=== PATIENT | male | born 1990 | race African-American/Black ===

== ENCOUNTER 2016-08-08 20:07 | Emergency (ER) | payer MEDICAID ==
--- NOTE | 2016-08-08 20:40 | ER Document Report ---
ED Medical Screen (RME) - General Stated Complaint: IVC Notes: patient is a 26 year old male with PMH s/f schizophrenia patient admits to paranoid feeling that others want to harm him visual hallucinations, auditory hallucinations patient and family feel that his medications are not working effectively become disruptive at home and aggressive with his family I have greeted and performed a rapid initial assessment of this patient. A comprehensive ED assessment and evaluation of the patient, analysis of test results and completion of the medical decision making process will be conducted by additional ED providers.
[2016-08-08 21:21] LABS: ABSOLUTE EOSINOPHILS # (AUTO) 0.3 10^3/uL (0.0-0.6); ABSOLUTE LYMPHOCYTES (AUTO) 1.7 10^3/uL (0.5-4.7); ABSOLUTE MONOCYTES (AUTO) 0.5 10^3/uL (0.1-1.4); ABSOLUTE NEUT (AUTO) 2.3 10^3/uL (1.7-8.2); APPEARANCE,URINE SLIGHTLY-CLOUDY; BASOPHILS % (AUTO) 0.5 % (0-2); BILIRUBIN,URINE NEGATIVE (NEGATIVE); CALCIUM OXALATE CRYSTALS,URINE FEW /HPF; EOSINOPHILS % (AUTO) 6.5 % (0-6); GLUCOSE, URINE NEGATIVE (NEGATIVE); HEMATOCRIT 44.2 % (37.9-51.0); HGB HCT DIFFERENCE 0.8; KETONES,URINE NEGATIVE (NEGATIVE); LEUKOCYTE ESTERASE,URINE SMALL (NEGATIVE); LYMPHOCYTES % (AUTO) 35.4 % (13-45); MEAN CORPUSCULAR HEMOGLOBIN 30.6 pg (27.0-33.4); MEAN CORPUSCULAR HGB CONC 33.9 g/dL (32.0-36.0); MEAN CORPUSCULAR VOLUME 90 fl (80-97); MONOCYTES % (AUTO) 10.6 % (3-13); NITRITE,URINE NEGATIVE (NEGATIVE); PROTEIN,URINE NEGATIVE (NEGATIVE); RED CELL DISTRIBUTION WIDTH 13.4 % (11.5-14.0); URINE SPECIFIC GRAVITY 1.029; WHITE BLOOD COUNT 4.8 10^3/uL (4.0-10.5)
[2016-08-08 21:29] LABS: ALANINE AMINOTRANSFERASE 60 U/L (21-72); ALCOHOL < 10 mg/dL (NONE DETECTED); ALKALINE PHOSPHATASE 75 U/L (38-126); ANION GAP 8 (5-19); ASPARTATE AMINO TRANSFERASE 47 U/L (17-59); BILIRUBIN,TOTAL 0.4 mg/dL (0.2-1.3); BLOOD UREA NITROGEN 11 mg/dL (7-20); CALCIUM 9.7 mg/dL (8.4-10.2); CARBON DIOXIDE 30 mmol/L (22-30); CHLORIDE 104 mmol/L (98-107); CREATININE RESULT 1.01 mg/dL (0.52-1.25); GLUCOSE 110 mg/dL (75-110); POTASSIUM 3.8 mmol/L (3.6-5.0); SODIUM 142.2 mmol/L (137-145); TOTAL PROTEIN 7.3 g/dL (6.3-8.2)
[2016-08-08 21:32] LABS: URINE BARBITURATES SCREEN NEGATIVE; URINE METHADONE SCREEN NEGATIVE; URINE OPIATES LOW NEGATIVE; URINE PHENCYCLIDINE SCREEN NEGATIVE
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
--- NOTE | 2016-08-09 12:43 | EKG REPORT ---
SEVERITY:- NORMAL ECG - SINUS RHYTHM : Confirmed by: Clyde Sung 09-Aug-2016 12:41:39
[2016-08-09 13:27] VITALS: BP 142/81
--- NOTE | 2016-08-09 16:13 | PSYCHOLOGICAL NOTE ---
Psych Note - Psych Note Psych Note: Patient presented to [facility] ED with a history of schizophrenia; patient admits to paranoid feeling that others want to harm him. Patient disclosed that he is here for his medication. He continued disclosed that he told his mom he needed to his medicine but she would not do it. He continues state that he is now hearing voices because it's time for his medication. Patient states that he was at [facility] in the beginning of the month. Clinician received confirmation from [facility] that the patient received Invega shot that will last 1 month and he is not due for until approximately August 21. Patient is alert and orientated to person place time and circumstance. Mood is euthymic with congruent affect. Patient denies suicidal homicidal ideation. Patient denies current auditory visual hallucinations; no delusions are noted. Thought process is is congruent with patient's possible IDD and is organized and linear. Conversational speech was within normal rate tone and prosody. Eye contact was well maintained. Intellectual abilities appear to be low average range. Attention and concentration are good. Insight, judgment, impulse control are good. 298.9 (F29) Unspecified Schizophrenia Spectrum and Other Psychotic Disorder per history provided by patient. Impression\plan: Patient is recommended for rescind of IVC is considered psychiatrically cleared for discharge. Patient denies suicidal homicidal ideation. Patient states he just needed his medication because he thought it was time for it clinician explained to the patient that he needs to go to his outpatient provider for his mental health approximately the first of the month to receive his medication. Patient stated he did not know that. Patient is not demonstrating any behavior of responding to internal stimuli. Patient does not meet criteria for IVC per [place] GS 122C. Patient is psychiatrically cleared for discharge. Dr. Breaux was consulted on the care and management of this patient; attending physician is in agreement with recommendations and disposition.
== END 2016-08-09 13:17 | disposition home or self-care (01) ==
LOC: ER 20:07
DX: F20.9 Schizophrenia, unspecified (principal); R45.6 Violent behavior; F17.200 Nicotine dependence, unspecified, uncomplicated
CPT/HCPCS: 36415; 80053; 80307; 81001; 85025; 93005; 93010; 99285

== ENCOUNTER 2016-12-06 20:31 | Emergency (ER) | payer MEDICAID, OTHER ==
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
[2016-12-06 23:24] LABS: ABSOLUTE EOSINOPHILS # (AUTO) 0.2 10^3/uL (0.0-0.6); ABSOLUTE LYMPHOCYTES (AUTO) 1.6 10^3/uL (0.5-4.7); ABSOLUTE MONOCYTES (AUTO) 0.5 10^3/uL (0.1-1.4); ABSOLUTE NEUT (AUTO) 2.1 10^3/uL (1.7-8.2); BASOPHILS % (AUTO) 0.7 % (0-2); EOSINOPHILS % (AUTO) 4.5 % (0-6); HEMOGLOBIN 14.2 g/dL (13.5-17.0); HGB HCT DIFFERENCE 0.6; LYMPHOCYTES % (AUTO) 36.1 % (13-45); MEAN CORPUSCULAR HEMOGLOBIN 30.2 pg (27.0-33.4); MEAN CORPUSCULAR HGB CONC 33.8 g/dL (32.0-36.0); MEAN CORPUSCULAR VOLUME 90 fl (80-97); MONOCYTES % (AUTO) 10.7 % (3-13); RED BLOOD COUNT 4.69 10^6/uL (4.35-5.55); RED CELL DISTRIBUTION WIDTH 12.8 % (11.5-14.0); WHITE BLOOD COUNT 4.3 10^3/uL (4.0-10.5)
[2016-12-06 23:37] LABS: ALANINE AMINOTRANSFERASE 27 U/L (21-72); ALBUMIN 3.7 g/dL (3.5-5.0); ALKALINE PHOSPHATASE 76 U/L (38-126); ANION GAP 10 (5-19); ASPARTATE AMINO TRANSFERASE 15 U/L (17-59); BILIRUBIN,DIRECT 0.3 mg/dL (0.0-0.4); BILIRUBIN,TOTAL 0.3 mg/dL (0.2-1.3); BLOOD UREA NITROGEN 18 mg/dL (7-20); CARBON DIOXIDE 26 mmol/L (22-30); CHLORIDE 106 mmol/L (98-107); CREATININE RESULT 1.01 mg/dL (0.52-1.25); GLUCOSE 103 mg/dL (75-110); POTASSIUM 4.5 mmol/L (3.6-5.0); SODIUM 142.3 mmol/L (137-145)
[2016-12-06 23:38] LABS: ALCOHOL < 10 mg/dL (NONE DETECTED)
--- NOTE | 2016-12-06 23:45 | EKG REPORT ---
SEVERITY:- NORMAL ECG - SINUS RHYTHM ST ELEV, PROBABLE NORMAL EARLY REPOL PATTERN : Confirmed by: Clyde Sung 06-Dec-2016 23:44:02
[2016-12-07 06:25] LABS: APPEARANCE,URINE CLOUDY; BILIRUBIN,URINE NEGATIVE (NEGATIVE); GLUCOSE, URINE NEGATIVE (NEGATIVE); KETONES,URINE NEGATIVE (NEGATIVE); LEUKOCYTE ESTERASE,URINE SMALL (NEGATIVE); NITRITE,URINE NEGATIVE (NEGATIVE); PROTEIN,URINE 30 mg/dL (NEGATIVE); URINE SPECIFIC GRAVITY 1.026; UROBILINOGEN,URINE NEGATIVE mg/dL (<2.0)
[2016-12-07 06:37] LABS: URINE BARBITURATES SCREEN NEGATIVE; URINE METHADONE SCREEN NEGATIVE; URINE OPIATES LOW NEGATIVE; URINE PHENCYCLIDINE SCREEN NEGATIVE
--- NOTE | 2016-12-07 10:44 | ER Document Report ---
Doctor's Note Notes: 12/07/16 10:43 Patient resting comfortably, no concerns overnight, patient has no complaints and reports feeling much better, chart was reviewed including labs and vital signs which remained stable, patient likely to be discharged today as his concerns seem to be behavioral in nature and do not require inpatient psychiatric treatment
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
[2016-12-07 11:34] VITALS: BP 111/55
== END 2016-12-07 11:40 | disposition home or self-care (01) ==
LOC: ER 20:31
DX: F91.9 Conduct disorder, unspecified (principal); F12.20 Cannabis dependence, uncomplicated; R45.850 Homicidal ideations; F29 Unspecified psychosis not due to a substance or known physiological condition; F32.9 Major depressive disorder, single episode, unspecified
CPT/HCPCS: 36415; 80053; 80307; 81001; 85025; 93005; 93010; 99284

== ENCOUNTER 2018-01-30 22:06 | Emergency (ER) | payer MEDICAID, OTHER ==
--- NOTE | 2018-01-30 23:53 | ER Document Report ---
ED General - General Chief Complaint: Medication Refill Stated Complaint: MED REFILL Time Seen by Provider: 01/30/18 23:33 Mode of Arrival: Medic Information source: Patient TRAVEL OUTSIDE OF THE [place] IN LAST 30 DAYS: No - Related Data Allergies/Adverse Reactions: No Known Allergies Allergy (Unverified 08/08/16 20:37) Past Medical History - Social History Smoking Status: Current Every Day Smoker Chew tobacco use (# tins/day): No Frequency of alcohol use: None Drug Abuse: None Family History: Reviewed & Not Pertinent Patient has suicidal ideation: No Patient has homicidal ideation: No - Past Medical History Cardiac Medical History: Reports: Hx Hypertension Denies: Hx Coronary Artery Disease Endocrine Medical History: Denies: Hx Diabetes Mellitus Type 1, Hx Diabetes Mellitus Type 2 Renal/ Medical History: Denies: Hx Peritoneal Dialysis Musculoskeletal Medical History: Reports Hx Musculoskeletal Trauma Psychiatric Medical History: Reports: Hx Anxiety, Hx Bipolar Disorder, Hx Depression, Hx Schizophrenia Traumatic Medical History: Reports: Hx Fractures Past Surgical History: Reports: Hx Orthopedic Surgery - finger - Immunizations Immunizations up to date: No Hx Diphtheria, Pertussis, Tetanus Vaccination: No
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
[2018-01-31] MEDS ORDERED: BENZTROPINE MESYLATE 1 MG TABLET PO SCH ×2 (00:15→10:00)
[2018-01-31 01:31] LABS: ABSOLUTE EOSINOPHILS # (AUTO) 0.1 10^3/uL (0.0-0.6); ABSOLUTE LYMPHOCYTES (AUTO) 1.2 10^3/uL (0.5-4.7); ABSOLUTE MONOCYTES (AUTO) 0.8 10^3/uL (0.1-1.4); ABSOLUTE NEUT (AUTO) 5.6 10^3/uL (1.7-8.2); APPEARANCE,URINE CLEAR; BASOPHILS % (AUTO) 0.2 % (0-2); BILIRUBIN,URINE NEGATIVE (NEGATIVE); COLOR,URINE YELLOW; EOSINOPHILS % (AUTO) 1.3 % (0-6); GLUCOSE, URINE NEGATIVE (NEGATIVE); HEMATOCRIT 45.8 % (37.9-51.0); HEMOGLOBIN 15.9 g/dL (13.5-17.0); KETONES,URINE NEGATIVE (NEGATIVE); LEUKOCYTE ESTERASE,URINE NEGATIVE (NEGATIVE); LYMPHOCYTES % (AUTO) 15.7 % (13-45); MEAN CORPUSCULAR HEMOGLOBIN 31.6 pg (27.0-33.4); MEAN CORPUSCULAR HGB CONC 34.7 g/dL (32.0-36.0); MEAN CORPUSCULAR VOLUME 91 fl (80-97); MONOCYTES % (AUTO) 9.9 % (3-13); NITRITE,URINE NEGATIVE (NEGATIVE); PLATELET COUNT 163 10^3/uL (150-450); PROTEIN,URINE NEGATIVE (NEGATIVE); RED BLOOD COUNT 5.04 10^6/uL (4.35-5.55); RED CELL DISTRIBUTION WIDTH 13.7 % (11.5-14.0); SEGMENTED NEUTROPHILS % (AUTO) 72.9 % (42-78); TOTAL CELLS COUNTED % (AUTO) 100 %; URINE SPECIFIC GRAVITY 1.026; WHITE BLOOD COUNT 7.7 10^3/uL (4.0-10.5)
[2018-01-31 01:45] LABS: ALANINE AMINOTRANSFERASE 34 U/L (21-72); ALBUMIN 4.4 g/dL (3.5-5.0); ALKALINE PHOSPHATASE 73 U/L (38-126); ANION GAP 13 (5-19); ASPARTATE AMINO TRANSFERASE 27 U/L (17-59); BILIRUBIN,DIRECT 0.4 mg/dL (0.0-0.4); BILIRUBIN,TOTAL 0.6 mg/dL (0.2-1.3); BLOOD UREA NITROGEN 15 mg/dL (7-20); CALCIUM 9.1 mg/dL (8.4-10.2); CARBON DIOXIDE 25 mmol/L (22-30); CHLORIDE 106 mmol/L (98-107); GLUCOSE 91 mg/dL (75-110); SODIUM 143.6 mmol/L (137-145); TOTAL PROTEIN 7.8 g/dL (6.3-8.2)
[2018-01-31 01:49] LABS: ACETAMINOPHEN < 10 ug/mL (10-30); ALCOHOL < 10 mg/dL (NONE DETECTED); POTASSIUM 4.4 mmol/L (3.6-5.0)
[2018-01-31 01:53] LABS: URINE AMPHETAMINES SCREEN NEGATIVE; URINE BARBITURATES SCREEN NEGATIVE; URINE BENZODIAZEPINES SCREEN NEGATIVE; URINE COCAINE SCREEN NEGATIVE; URINE MARIJUANA (THC) SCREEN UNCONFIRMED POSITIVE; URINE METHADONE SCREEN NEGATIVE; URINE PHENCYCLIDINE SCREEN NEGATIVE
--- NOTE | 2018-01-31 10:18 | ER Document Report ---
Doctor's Note Notes: 01/31/18 10:13 Rounds: Chart reviewed and patient interviewed. Patient is ambulatory around the department without any problems. Calm and cooperative. Patient says he came in because he got his monthly shot of Haldol 2 days ago and needs a prescription for Cogentin. He was kept here because he supposedly has been hallucinating and having difficulty with his family, threatening them and being very agitated and has resumed taking drugs and drinking alcohol, substances that he has had problems within the past. Vital signs are all essentially normal. Lab studies were positive for marijuana. Other studies essentially normal. Patient appears to be medically stable for transfer or discharge. Yanni Fuentes MD 01/31/18 10:18 Patient was given Diflucan 200 mg in the emergency department. Patient has no symptoms. His sexual partners that she had had a recent vaginal infection. Yanni Fuentes MD
[2018-01-31 15:25] VITALS: BP 135/86
--- NOTE | 2018-01-31 16:11 | PSYCHOLOGICAL NOTE ---
Psych Note - Psych Note Psych Note: Reason for Consult: Medication Refill Consent for permissions: Lynette Anders, Patient presents to the ED with needs of a cogentin refill, pt. states that he has been out of pills for 2-3 weeks. Patient reports that he needs a prescription for the cogentin. no suicidal ideation. no homicidal ideation. no hallucinations or delusions present. Patient made good consistent eye contact. Very calm/cooperative during the assessment. Patient reports that [facility] is his provider but that he was unable to reach them to let them know that he was out of medication. Patient states that he is moving to [place] soon to be with family. Patient's mom confirmed that he has a flight tonight out of [place] to [place] at 5:30pm. Patient displayed a very calm, cooperative demeanor. Patient was alert, oriented to person, place, time and circumstance. Patient denies thoughts of hurting himself. Patient denies thoughts of hurting other people. Delusions are absent. Patient presents with an intact reality base. Thought processes are organized, linear. Patient was focused on my questioning and made good, consistent eye contact. Conversational speech was at a normal rate and tone. Intellectual abilities appear to be within the average range. Insight, judgement and impulse control is currently good. Diagnosis: 295.90 F20.9, Schizophrenia, Unspecified Medication recommendations per [facility]'s contracted psychiatrist Dr. Jorge ALATORRE as follows: Cogentin 1mg daily Impression/Plan: This patient is cleared from acute psychiatric services. Patient came to [facility] seeking a refill on his prescription for Cogentin.Patient is recommended to establish a mental health provider in [place]. Patient does not meet IVC requirements per [place] GS 122.C. Dr. Breaux was consulted on the care and management of this patient; attending physician in agreement with recommendations and disposition.
== END 2018-01-31 15:33 | disposition home or self-care (01) ==
LOC: ER 22:06
DX: F20.9 Schizophrenia, unspecified (principal); T44.3X6A Underdosing of other parasympatholytics [anticholinergics and antimuscarinics] and spasmolytics, initial encounter; Z91.128 Patient's intentional underdosing of medication regimen for other reason; Z91.14 Patient's other noncompliance with medication regimen; Z79.899 Other long term (current) drug therapy; R45.6 Violent behavior; F14.10 Cocaine abuse, uncomplicated; F12.10 Cannabis abuse, uncomplicated; F17.200 Nicotine dependence, unspecified, uncomplicated; I10 Essential (primary) hypertension
CPT/HCPCS: 99284; 36415; 80307 ×3; 85025; 80053; 81001; J3490

== ENCOUNTER 2018-04-12 13:19 | Emergency (ER) | payer MEDICARE, MEDICAID ==
[2018-04-12 14:19] LABS: ABSOLUTE EOSINOPHILS # (AUTO) 0.1 10^3/uL (0.0-0.6); ABSOLUTE LYMPHOCYTES (AUTO) 1.3 10^3/uL (0.5-4.7); ABSOLUTE MONOCYTES (AUTO) 0.5 10^3/uL (0.1-1.4); ABSOLUTE NEUT (AUTO) 4.1 10^3/uL (1.7-8.2); BASOPHILS % (AUTO) 0.5 % (0-2); EOSINOPHILS % (AUTO) 1.5 % (0-6); HEMATOCRIT 47.6 % (37.9-51.0); HEMOGLOBIN 16.4 g/dL (13.5-17.0); LYMPHOCYTES % (AUTO) 21.7 % (13-45); MEAN CORPUSCULAR HEMOGLOBIN 30.9 pg (27.0-33.4); MEAN CORPUSCULAR HGB CONC 34.6 g/dL (32.0-36.0); MEAN CORPUSCULAR VOLUME 89 fl (80-97); MONOCYTES % (AUTO) 8.3 % (3-13); PLATELET COUNT 223 10^3/uL (150-450); RED BLOOD COUNT 5.32 10^6/uL (4.35-5.55); TOTAL CELLS COUNTED % (AUTO) 100 %; WHITE BLOOD COUNT 6.1 10^3/uL (4.0-10.5)
[2018-04-12 14:34] LABS: APPEARANCE,URINE SLIGHTLY-CLOUDY; BILIRUBIN,URINE NEGATIVE (NEGATIVE); COLOR,URINE YELLOW; GLUCOSE, URINE NEGATIVE (NEGATIVE); KETONES,URINE 20 mg/dL (NEGATIVE); LEUKOCYTE ESTERASE,URINE NEGATIVE (NEGATIVE); NITRITE,URINE NEGATIVE (NEGATIVE); PROTEIN,URINE 100 mg/dL (NEGATIVE); URINE SPECIFIC GRAVITY 1.031
--- NOTE | 2018-04-12 14:40 | ER Document Report ---
ED Psych Disorder / Suicide - General Chief Complaint: Psych Problem Stated Complaint: IVC W/PAPERS Time Seen by Provider: 04/12/18 14:39 Notes: This is a 27-year-old male history of schizophrenia. History of angry outbursts. On long-acting Haldol. Brought in by police for IVC paperwork as family member states that he is becoming more threatening. This is a large male with history of aggressive behavior. Reportedly was quite unkept by the report from the nurses. Was offered shower. On arrival for my evaluation. Patient is agitated and easily disturbed and angry. Does not wish to communicate with me. Will not answer questions. Will not allow me to examine him. TRAVEL OUTSIDE OF THE [place] IN LAST 30 DAYS: No - HPI Patient complains to provider of: Aggression - Related Data Allergies/Adverse Reactions: No Known Allergies Allergy (Verified 04/12/18 13:46) Past Medical History - General Information source: [facility] Records - Social History Smoking Status: Current Every Day Smoker Frequency of alcohol use: Occasional Drug Abuse: Marijuana Family History: Reviewed & Not Pertinent Patient has suicidal ideation: No Patient has homicidal ideation: No - Past Medical History Cardiac Medical History: Reports: Hx Hypertension Denies: Hx Coronary Artery Disease Endocrine Medical History: Denies: Hx Diabetes Mellitus Type 1, Hx Diabetes Mellitus Type 2 Renal/ Medical History: Denies: Hx Peritoneal Dialysis Musculoskeletal Medical History: Reports Hx Musculoskeletal Trauma Psychiatric Medical History: Reports: Hx Anxiety, Hx Bipolar Disorder, Hx Depression, Hx Schizophrenia Traumatic Medical History: Reports: Hx Fractures Past Surgical History: Reports: Hx Orthopedic Surgery - finger - Immunizations Immunizations up to date: No Hx Diphtheria, Pertussis, Tetanus Vaccination: No Review of Systems - Review of Systems -: Yes ROS unobtainable due to patient's medical condition - uncooperative Physical Exam - Vital signs Vitals: Temp Pulse Resp BP Pulse Ox 97.9 F 88 16 147/84 H 100 04/12/18 14:21 04/12/18 14:21 04/12/18 14:21 04/12/18 14:21 04/12/18 14:21 Interpretation: Normal - Notes Notes: Patient is eating and we will not answering questions - General General appearance: Appears well, Alert - HEENT Head: Normocephalic Eyes: Normal Conjunctiva: No: Icteric - Respiratory Respiratory status: No respiratory distress Notes: Normal rise and follow-up of chest. - Cardiovascular Notes: Patient will not allow me to leave the stethoscope on his chest. Will not allow me to auscultate. - Abdominal Notes: Patient refusing to be touched. Unable to examine the abdomen. - Extremities General upper extremity: Normal inspection, Normal ROM. No: Edema General lower extremity: Normal inspection, Normal ROM. No: Edema - Neurological Neuro grossly intact: No Anthony Coma Scale Eye Opening: Spontaneous [place] Coma Scale Verbal: Oriented Anthony Coma Scale Motor: Obeys Commands Anthony Coma Scale Total: 15 Speech: Normal - Skin Skin Moisture: Dry Skin Color: Normal Course - Re-evaluation Re-evalutation: 04/12/18 22:56 Laboratory 04/12/18 04/12/18 04/12/18 14:10 14:10 14:15 WBC 6.1 RBC 5.32 Hgb 16.4 Hct 47.6 MCV 89 MCH 30.9 MCHC 34.6 RDW 13.0 Plt Count 223 Seg Neutrophils % 68.0 Lymphocytes % 21.7 Monocytes % 8.3 Eosinophils % 1.5 Basophils % 0.5 Absolute Neutrophils 4.1 Absolute Lymphocytes 1.3 Absolute Monocytes 0.5 Absolute Eosinophils 0.1 Absolute Basophils 0.0 Sodium 142.6 Potassium 4.1 Chloride 107 Carbon Dioxide 26 Anion Gap 10 BUN 16 Creatinine 0.96 Est GFR ( Amer) > 60 Est GFR (Non-Af Amer) > 60 Glucose 143 H Calcium 9.8 Total Bilirubin 0.7 Direct Bilirubin 0.3 Neonat Total Bilirubin Not Reportable Neonat Direct Bilirubin Not Reportable Neonat Indirect Bili Not Reportable AST 23 ALT 23 Alkaline Phosphatase 86 Total Protein 8.1 Albumin 4.6 Urine Color YELLOW Urine Appearance SLIGHTLY-CLOUDY Urine pH 5.0 Ur Specific [place] 1.031 Urine Protein 100 H Urine Glucose (UA) NEGATIVE Urine Ketones 20 H Urine Blood NEGATIVE Urine Nitrite NEGATIVE Urine Bilirubin NEGATIVE Urine Urobilinogen 4.0 H Ur Leukocyte Esterase NEGATIVE Urine WBC (Auto) 2 Urine RBC (Auto) 1 Squamous Epi Cells Auto <1 Urine Mucus (Auto) OCC Urine Ascorbic Acid NEGATIVE Salicylates < 1.0 L Urine Opiates Screen Urine Methadone Screen Acetaminophen < 10 L Ur Barbiturates Screen Ur Phencyclidine Scrn Ur Amphetamines Screen U Benzodiazepines Scrn Urine Cocaine Screen U Marijuana (THC) Screen Serum Alcohol < 10 04/12/18 14:15 WBC RBC Hgb Hct MCV MCH MCHC RDW Plt Count Seg Neutrophils % Lymphocytes % Monocytes % Eosinophils % Basophils % Absolute Neutrophils Absolute Lymphocytes Absolute Monocytes Absolute Eosinophils Absolute Basophils Sodium Potassium Chloride Carbon Dioxide Anion Gap BUN Creatinine Est GFR ( Amer) Est GFR (Non-Af Amer) Glucose Calcium Total Bilirubin Direct Bilirubin Neonat Total Bilirubin Neonat Direct Bilirubin Neonat Indirect Bili AST ALT Alkaline Phosphatase Total Protein Albumin Urine Color Urine Appearance Urine pH Ur Specific [place] Urine Protein Urine Glucose (UA) Urine Ketones Urine Blood Urine Nitrite Urine Bilirubin Urine Urobilinogen Ur Leukocyte Esterase Urine WBC (Auto) Urine RBC (Auto) Squamous Epi Cells Auto Urine Mucus (Auto) Urine Ascorbic Acid Salicylates Urine Opiates Screen NEGATIVE Urine Methadone Screen NEGATIVE Acetaminophen Ur Barbiturates Screen NEGATIVE Ur Phencyclidine Scrn NEGATIVE Ur Amphetamines Screen NEGATIVE U Benzodiazepines Scrn NEGATIVE Urine Cocaine Screen NEGATIVE U Marijuana (THC) Screen UNCONFIRMED POSITIVE Serum Alcohol With unconfirmed positive marijuana in his system patient with known history of psychosis. Violent behavior. Patient refusing to allow me to evaluate him and I did not want to get confrontational with him so unable to do a complete physical exam on him at this time. We will give him a shot of long-acting Haldol and some oral Haldol and reassess in the morning. - Vital Signs Vital signs: Temp Pulse Resp BP Pulse Ox 97.9 F 88 16 147/84 H 100 04/12/18 14:21 04/12/18 14:21 04/12/18 14:21 04/12/18 14:21 04/12/18 14:21 - Laboratory Result Diagrams: 04/12/18 14:10 04/12/18 14:10 Laboratory results interpreted by me: 04/12/18 04/12/18 14:10 14:15 Glucose 143 H Urine Protein 100 H Urine Ketones 20 H Urine Urobilinogen 4.0 H Salicylates < 1.0 L Acetaminophen < 10 L Discharge - Discharge Clinical Impression: Schizophrenia Qualifiers: Schizophrenia type: unspecified Qualified Code(s): F20.9 - Schizophrenia, unspecified Condition: Good
[2018-04-12 14:43] LABS: ACETAMINOPHEN < 10 ug/mL (10-30); ALANINE AMINOTRANSFERASE 23 U/L (21-72); ALBUMIN 4.6 g/dL (3.5-5.0); ALCOHOL < 10 mg/dL (NONE DETECTED); ALKALINE PHOSPHATASE 86 U/L (38-126); ANION GAP 10 (5-19); ASPARTATE AMINO TRANSFERASE 23 U/L (17-59); BILIRUBIN,DIRECT 0.3 mg/dL (0.0-0.4); BILIRUBIN,TOTAL 0.7 mg/dL (0.2-1.3); BLOOD UREA NITROGEN 16 mg/dL (7-20); CALCIUM 9.8 mg/dL (8.4-10.2); CARBON DIOXIDE 26 mmol/L (22-30); CHLORIDE 107 mmol/L (98-107); GLUCOSE 143 mg/dL (75-110); POTASSIUM 4.1 mmol/L (3.6-5.0); SALICYLATE < 1.0 mg/dL (2.0-20.0); SODIUM 142.6 mmol/L (137-145); TOTAL PROTEIN 8.1 g/dL (6.3-8.2)
[2018-04-12 14:49] LABS: URINE AMPHETAMINES SCREEN NEGATIVE; URINE BARBITURATES SCREEN NEGATIVE; URINE BENZODIAZEPINES SCREEN NEGATIVE; URINE COCAINE SCREEN NEGATIVE; URINE MARIJUANA (THC) SCREEN UNCONFIRMED POSITIVE; URINE METHADONE SCREEN NEGATIVE; URINE PHENCYCLIDINE SCREEN NEGATIVE
--- NOTE | 2018-04-12 16:30 | EKG REPORT ---
SEVERITY:- NORMAL ECG - SINUS RHYTHM : Confirmed by: Jose Kruse MD 12-Apr-2018 16:29:50
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
[2018-04-12] MEDS: HALOPERIDOL 5 MG TABLET PO SCH (18:10)
[2018-04-12] MEDS: BENZTROPINE MESYLATE 1 MG TABLET PO SCH (18:10)
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
[2018-04-13] MEDS: BENZTROPINE MESYLATE 1 MG TABLET PO SCH (09:13)
[2018-04-13] MEDS: HALOPERIDOL 5 MG TABLET PO SCH ×2 (09:13→17:13)
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
[2018-04-13] MEDS ORDERED: DIPHENHYDRAMINE HCL 50 MG/ML VIAL IV PRN (13:51)
[2018-04-13] MEDS ORDERED: HALOPERIDOL DECANOATE INJ 100 MG/1 ML VIAL IM ONE (17:03)
--- NOTE | 2018-04-14 07:32 | ER Document Report ---
Doctor's Note Notes: 04/14/18 07:32 Patient is been seen and evaluated. Remained stable for transport at this time.
[2018-04-14 07:45] VITALS: BP 140/83
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
== END 2018-04-14 07:45 ==
LOC: ER 13:19
DX: F20.9 Schizophrenia, unspecified (principal); F17.200 Nicotine dependence, unspecified, uncomplicated; Z79.899 Other long term (current) drug therapy; I10 Essential (primary) hypertension
CPT/HCPCS: 93005; 99285; 96372; 96374; 36415; 80307 ×4; 85025; 80053; 81001; 93010; A9270 ×4

== ENCOUNTER 2018-05-11 15:47 | Emergency (ER) | payer MEDICARE, MEDICAID ==
--- NOTE | 2018-05-11 16:09 | ER Document Report ---
ED Medical Screen (RME) - General Chief Complaint: Psych Problem Stated Complaint: PSYCH EVAL Time Seen by Provider: 05/11/18 16:08 Notes: Patient is a 27-year-old male with history of psychosis that presents to the emergency department for chief complaint of psychotic behavior, and sending threatening text to his mother, currently on antipsychotic medications, they do not recall the names of them, they did try to go to the last psychiatric facility he was in, but they told him he needed to come back to the ER to be screened for medical clearance. ROS: Other than noted above, the 12 point review of systems was reviewed with the patient and were negative, all pertinent findings are included in the HPI. PHYSICAL EXAMINATION: Vital signs reviewed. GENERAL: Well-appearing, well-nourished and in no acute distress. HEAD: Atraumatic, normocephalic. EYES: Pupils equal round extraocular movements intact, conjunctiva are normal. ENT: Nares patent NECK: Normal range of motion CV: Heart regular rate and rhythm LUNGS: No respiratory distress Musculoskeletal: Normal range of motion NEUROLOGICAL: Normal speech PSYCH: Flat affect, making statements about God and killing, nonsensical and delusional MDM: Patient seen and examined for rapid initial assessment. Vital signs reviewed. A comprehensive ED assessment and evaluation of the patient, analysis of test results and completion of the medical decision making process will be conducted by additional ED providers. *Note is created using voice recognition software and may contain spelling, syntax or grammatical errors. TRAVEL OUTSIDE OF THE [place] IN LAST 30 DAYS: No - Related Data Allergies/Adverse Reactions: No Known Allergies Allergy (Verified 04/12/18 13:46) Past Medical History - Past Medical History Cardiac Medical History: Reports: Hx Hypertension Denies: Hx Coronary Artery Disease Endocrine Medical History: Denies: Hx Diabetes Mellitus Type 1, Hx Diabetes Mellitus Type 2 Renal/ Medical History: Denies: Hx Peritoneal Dialysis Musculoskeltal Medical History: Reports Hx Musculoskeletal Trauma Psychiatric Medical History: Reports: Hx Anxiety, Hx Bipolar Disorder, Hx Depression, Hx Schizophrenia Traumatic Medical History: Reports: Hx Fractures Past Surgical History: Reports: Hx Orthopedic Surgery - finger - Immunizations Immunizations up to date: No Hx Diphtheria, Pertussis, Tetanus Vaccination: No Physical Exam - Vital signs Vitals: Temp Pulse Resp BP Pulse Ox 98.6 F 109 H 14 129/91 H 96 05/11/18 15:57 05/11/18 15:57 05/11/18 15:57 05/11/18 15:57 05/11/18 15:57 Course - Vital Signs Vital signs: Temp Pulse Resp BP Pulse Ox 98.6 F 109 H 14 129/91 H 96 05/11/18 15:57 05/11/18 15:57 05/11/18 15:57 05/11/18 15:57 05/11/18 15:57
[2018-05-11 16:40] LABS: APPEARANCE,URINE CLEAR; BILIRUBIN,URINE NEGATIVE (NEGATIVE); COLOR,URINE YELLOW; GLUCOSE, URINE NEGATIVE (NEGATIVE); KETONES,URINE 80 mg/dL (NEGATIVE); LEUKOCYTE ESTERASE,URINE NEGATIVE (NEGATIVE); NITRITE,URINE NEGATIVE (NEGATIVE); PROTEIN,URINE NEGATIVE (NEGATIVE); URINE SPECIFIC GRAVITY 1.024
[2018-05-11] MEDS ORDERED: ZIPRASIDONE HCL 40 MG CAPSULE PO ONE (16:51)
[2018-05-11] MEDS ORDERED: DIPHENHYDRAMINE HCL 50 MG CAPSULE PO ONE (16:51)
[2018-05-11 16:56] LABS: URINE AMPHETAMINES SCREEN NEGATIVE; URINE BARBITURATES SCREEN NEGATIVE; URINE BENZODIAZEPINES SCREEN NEGATIVE; URINE COCAINE SCREEN NEGATIVE; URINE MARIJUANA (THC) SCREEN UNCONFIRMED POSITIVE; URINE METHADONE SCREEN NEGATIVE; URINE PHENCYCLIDINE SCREEN NEGATIVE
--- NOTE | 2018-05-11 17:36 | PSYCHOLOGICAL NOTE ---
Psych Note - Psych Note Date seen by psych provider: 05/11/18 Time seen by psych provider: 16:40 Psych Note: Reason for Consult: psychosis Patient is a 27-year-old male with history of psychosis that presents to the emergency department for chief complaint of psychotic behavior, and sending threatening text to his mother. Clinician attempted to engage patient. He refused to speak to clinician stating he is done talking. Patient is observed pacing with a high level of irritability. Clinician again attempted to engage patient however patient's irritability increased which required security to make presence. Clinician notes patient did not act out violently however his extreme agitation and verbal threats required higher level of security presence. Medication recommendations per [facility]'s contracted psychiatrist Dr. Jorge ALATORRE as follows Haldol 5mg twice daily Cogentin 1mg daily Diagnosis 295.90 (F20.9) Schizophrenia Impression/Plan: Patient is recommended for IVC. Patient refused to engage. Patient demonstrates psychomotor agitation with pacing and irritability. This patient is well-known to this clinician and department and is not currently presenting as his baseline. Patient is normally pleasant and openly engages with clinician. Patient will be reevaluated. Dr. Breaux was consulted on the care and management of this patient; attending physician is in agreement with recommendations and disposition.
--- NOTE | 2018-05-11 18:50 | ER Document Report ---
ED Psych Disorder / Suicide - General Chief Complaint: Psych Problem Stated Complaint: PSYCH EVAL Time Seen by Provider: 05/11/18 16:08 Notes: Patient says I am always "running". He is here with his mother. Patient is supposed to be taking Prolixin 15 mg twice a day along with Cogentin, but mother says he is not taking his medications. He has been here many times in the past for mental assessment and is overtly psychotic at this moment. He was recently admitted to [facility]. He is confused, agitated, irritable. Somewhat confrontational and threatening. Cannot carry on a conversation as his thoughts are changing very rapidly and really do not make sense. TRAVEL OUTSIDE OF THE [place] IN LAST 30 DAYS: No - Related Data Allergies/Adverse Reactions: No Known Allergies Allergy (Verified 04/12/18 13:46) Past Medical History - Social History Smoking Status: Never Smoker Chew tobacco use (# tins/day): No Frequency of alcohol use: None Drug Abuse: None Family History: Reviewed & Not Pertinent Patient has suicidal ideation: No Patient has homicidal ideation: Yes - Past Medical History Cardiac Medical History: Reports: Hx Hypertension Endocrine Medical History: Denies: Hx Diabetes Mellitus Type 1, Hx Diabetes Mellitus Type 2 Musculoskeletal Medical History: Reports Hx Musculoskeletal Trauma Psychiatric Medical History: Reports: Hx Anxiety, Hx Bipolar Disorder, Hx Depression, Hx Schizophrenia Traumatic Medical History: Reports: Hx Fractures Past Surgical History: Reports: Hx Orthopedic Surgery - finger - Immunizations Immunizations up to date: No Hx Diphtheria, Pertussis, Tetanus Vaccination: No Review of Systems - Review of Systems -: Yes ROS unobtainable due to patient's medical condition - Too confused to answer questions or follow commands. Physical Exam - Vital signs Vitals: Temp Pulse Resp BP Pulse Ox 98.6 F 109 H 14 129/91 H 96 05/11/18 15:57 05/11/18 15:57 05/11/18 15:57 05/11/18 15:57 05/11/18 15:57 Interpretation: Normal Notes: PHYSICAL EXAMINATION: GENERAL: Well-appearing, in no acute distress. Somewhat agitated and irritable and confrontational and threatening at times. HEAD: Atraumatic, normocephalic. EYES: Pupils equal round and reactive to light, extraocular movements intact. NECK: Normal range of motion, supple. LUNGS: Breath sounds clear and equal bilaterally. HEART: Regular rate and rhythm without murmurs. ABDOMEN: Soft, nontender. No guarding or rebound. No masses. BACK: No tenderness throughout entire back. EXTREMITIES: Normal range of motion without pain. NEUROLOGICAL: Normal speech, normal gait. Normal sensory, motor, and reflex exams. Awake, alert, and oriented x3. PSYCH: Agitated, irritable, confrontational, somewhat threatening. SKIN: Warm, dry, no rashes. Course - Vital Signs Vital signs: Temp Pulse Resp BP Pulse Ox 98.6 F 109 H 14 129/91 H 96 05/11/18 15:57 05/11/18 15:57 05/11/18 15:57 05/11/18 15:57 05/11/18 15:57 - Laboratory Laboratory results interpreted by me: 05/11/18 16:24 Urine Ketones 80 H Urine Urobilinogen 4.0 H Discharge - Discharge Clinical Impression: Psychosis
[2018-05-11] MEDS ORDERED: ZIPRASIDONE HCL 40 MG CAPSULE PO PRN (19:20)
[2018-05-11] MEDS ORDERED: LORAZEPAM 1 MG TABLET PO ONE (19:23)
[2018-05-11 21:05] LABS: ABSOLUTE BASOPHILS # (AUTO) 0.1 10^3/uL (0.0-0.2); ABSOLUTE EOSINOPHILS # (AUTO) 0.7 10^3/uL (0.0-0.6); ABSOLUTE MONOCYTES (AUTO) 0.6 10^3/uL (0.1-1.4); ABSOLUTE NEUT (AUTO) 3.4 10^3/uL (1.7-8.2); BASOPHILS % (AUTO) 0.7 % (0-2); EOSINOPHILS % (AUTO) 10.7 % (0-6); HEMATOCRIT 42.6 % (37.9-51.0); HEMOGLOBIN 14.8 g/dL (13.5-17.0); LYMPHOCYTES % (AUTO) 29.8 % (13-45); MEAN CORPUSCULAR HEMOGLOBIN 30.9 pg (27.0-33.4); MEAN CORPUSCULAR HGB CONC 34.7 g/dL (32.0-36.0); MEAN CORPUSCULAR VOLUME 89 fl (80-97); MONOCYTES % (AUTO) 8.4 % (3-13); PLATELET COUNT 180 10^3/uL (150-450); RED BLOOD COUNT 4.78 10^6/uL (4.35-5.55); RED CELL DISTRIBUTION WIDTH 12.9 % (11.5-14.0); SEGMENTED NEUTROPHILS % (AUTO) 50.4 % (42-78); TOTAL CELLS COUNTED % (AUTO) 100 %; WHITE BLOOD COUNT 6.9 10^3/uL (4.0-10.5)
[2018-05-11 21:21] LABS: ALANINE AMINOTRANSFERASE 23 U/L (21-72); ALBUMIN 3.8 g/dL (3.5-5.0); ALKALINE PHOSPHATASE 70 U/L (38-126); ANION GAP 11 (5-19); ASPARTATE AMINO TRANSFERASE 17 U/L (17-59); BILIRUBIN,DIRECT 0.3 mg/dL (0.0-0.4); BILIRUBIN,TOTAL 0.5 mg/dL (0.2-1.3); BLOOD UREA NITROGEN 15 mg/dL (7-20); CALCIUM 9.2 mg/dL (8.4-10.2); CARBON DIOXIDE 26 mmol/L (22-30); CHLORIDE 102 mmol/L (98-107); GLUCOSE 133 mg/dL (75-110); SODIUM 138.7 mmol/L (137-145); TOTAL PROTEIN 6.8 g/dL (6.3-8.2)
[2018-05-11 21:25] LABS: ACETAMINOPHEN < 10 ug/mL (10-30); ALCOHOL < 10 mg/dL (NONE DETECTED); SALICYLATE < 1.0 mg/dL (2.0-20.0)
--- NOTE | 2018-05-11 22:03 | EKG REPORT ---
SEVERITY:- NORMAL ECG - SINUS RHYTHM : Confirmed by: Danuta Zaldivar MD 11-May-2018 22:02:39
[2018-05-12 05:52] VITALS: BP 101/60
--- NOTE | 2018-05-12 11:36 | ER Document Report ---
Doctor's Note Notes: 05/12/18 11:35 Rounds: Chart reviewed and patient interviewed. Patient is still psychotic lacking in organized thought processes, wanting to talk about Indians and saying he is an [place] from [place]. Other unintelligible statements. However, he is not aggressive or threatening since we started him on the Geodon. Labs were all essentially normal except for ketones in his urine and one on his drug screen. Vital signs are all essentially normal. Patient appears to be medically stable for transfer or discharge. I just got word that the patient has been accepted for transfer to Emilee Fuentes MD
[2018-05-12] MEDS ORDERED: NICOTINE 21 MG/24 HR PATCH.TD24 TD ONE (14:22)
--- NOTE | 2018-05-26 07:10 | PSYCHOLOGICAL NOTE ---
Psych Note - Psych Note Date seen by psych provider: 05/12/18 Time seen by psych provider: 07:40 Psych Note: Reason for Consult: psychosis Patient is a 27-year-old male with history of psychosis that presents to the emergency department for chief complaint of psychotic behavior, and sending threatening text to his mother. First attempt at evaluation occurred at 0740 patient continued to refuse to engage. Patient was accepted to [facility]. Medication recommendations per [facility]'s contracted psychiatrist Dr. Jorge ALATORRE as follows Haldol 5mg twice daily Cogentin 1mg daily Diagnosis 295.90 (F20.9) Schizophrenia Impression/Plan: Patient is recommended for IVC. Patient refused to engage. This patient is well-known to this clinician and department and is not currently presenting as his baseline. Patient is normally pleasant and openly engages with clinician. Patient was accepted to [facility]; transportation has been requested. Dr. Breaux was consulted on the care and management of this patient; attending physician is in agreement with recommendations and disposition.
== END 2018-05-12 14:50 ==
LOC: ER 15:47
DX: F20.9 Schizophrenia, unspecified (principal); I10 Essential (primary) hypertension
CPT/HCPCS: 93005; 99285; 36415; 80307 ×4; 85025; 80053; 81001; 93010; A9270 ×4

== ENCOUNTER 2018-06-01 18:37 | Emergency (ER) | payer MEDICARE, MEDICAID ==
--- NOTE | 2018-06-01 19:27 | ER Document Report ---
ED Medical Screen (RME) - General Chief Complaint: Psych Problem Stated Complaint: PSYCH Time Seen by Provider: 06/01/18 19:20 Notes: 28 year old male with a history of schizoaffective disorder that comes to the emergency department for chief complaint of not acting right. Mom states he was released from [facility] on Friday, states he has not been right since then, she states he is taking his medication, he confirms this, she states that he has been acting out with anger outbursts, states that he called the police on her and told them to come get her because she is a bitch. Patient is repeating the same words over and over, "I watch myself" in triage. He became agitated in triage and told his mother to leave. TRAVEL OUTSIDE OF THE [place] IN LAST 30 DAYS: No - Related Data Allergies/Adverse Reactions: No Known Allergies Allergy (Verified 04/12/18 13:46) Past Medical History - Past Medical History Cardiac Medical History: Reports: Hx Hypertension Denies: Hx Coronary Artery Disease Endocrine Medical History: Denies: Hx Diabetes Mellitus Type 1, Hx Diabetes Mellitus Type 2 Renal/ Medical History: Denies: Hx Peritoneal Dialysis Musculoskeltal Medical History: Reports Hx Musculoskeletal Trauma Psychiatric Medical History: Reports: Hx Anxiety, Hx Bipolar Disorder, Hx Depression, Hx Schizophrenia Traumatic Medical History: Reports: Hx Fractures Past Surgical History: Reports: Hx Orthopedic Surgery - finger - Immunizations Immunizations up to date: No Hx Diphtheria, Pertussis, Tetanus Vaccination: No Physical Exam - Vital signs Vitals: Temp Pulse Resp BP Pulse Ox 98.0 F 96 16 148/100 H 94 06/01/18 18:41 06/01/18 18:41 06/01/18 18:41 06/01/18 18:41 06/01/18 18:41 - Psychological Associated symptoms: Aggressive, Agitated Course - Re-evaluation Re-evalutation: Patient aggressively approaching his mother in triage, became easily agitated, possibly acutely psychotic. - Vital Signs Vital signs: Temp Pulse Resp BP Pulse Ox 98.0 F 96 16 148/100 H 94 06/01/18 18:41 06/01/18 18:41 06/01/18 18:41 06/01/18 18:41 06/01/18 18:41
--- NOTE | 2018-06-01 19:31 | ER Document Report ---
ED Psych Disorder / Suicide - General Chief Complaint: Psych Problem Stated Complaint: PSYCH Time Seen by Provider: 06/01/18 19:30 Mode of Arrival: Ambulatory Information source: Patient Notes: Patient is a 28-year-old male with a history of schizophrenia who presents with bizarre behavior. The patient states that he "sees all things" and reports that he takes medications daily for his schizophrenia. Report from family states the patient has been exhibiting altered and bizarre behavior consistent with previous episodes of acute psychosis in the setting of medication noncompliance. Patient denies fevers or chills, no cough or congestion, no suicidal or homicidal ideations. Patient does report occasionally seeing things but reports that he "sees everything;" he similarly states he appears things but denies paranoia. He denies drug use. TRAVEL OUTSIDE OF THE [place] IN LAST 30 DAYS: No - HPI Patient complains to provider of: Bizarre behavior, Hallucinating Onset: This morning Quality of pain: No pain Severity: Mild Pain Level: Denies Suicide Risk Factors: Chronic illness, Hallucinations, Male, Schizophrenia Normal mood: No Associated symptoms: Flat affect, Psychomotor depression, Unable to sleep Similar symptoms previously: Yes Recently seen / treated by doctor: No - Related Data Allergies/Adverse Reactions: No Known Allergies Allergy (Verified 04/12/18 13:46) Past Medical History - General Information source: Patient, Relative, Law Enforcement - Social History Smoking Status: Former Smoker Cigarette use (# per day): No Chew tobacco use (# tins/day): No Smoking Education Provided: No Frequency of alcohol use: None Drug Abuse: None Lives with: Family Family History: Reviewed & Not Pertinent Patient has suicidal ideation: No Patient has homicidal ideation: No - Past Medical History Cardiac Medical History: Reports: Hx Hypertension Denies: Hx Coronary Artery Disease Pulmonary Medical History: Reports: None EENT Medical History: Reports: None Neurological Medical History: Reports: None Endocrine Medical History: Reports: None. Denies: Hx Diabetes Mellitus Type 1, Hx Diabetes Mellitus Type 2 Renal/ Medical History: Reports: None. Denies: Hx Peritoneal Dialysis Malignancy Medical History: Reports None GI Medical History: Reports: None Musculoskeletal Medical History: Reports Hx Musculoskeletal Trauma Skin Medical History: Reports None Psychiatric Medical History: Reports: Hx Anxiety, Hx Bipolar Disorder, Hx Depression, Hx Schizophrenia Traumatic Medical History: Reports: Hx Fractures Surgical Hx: Negative Past Surgical History: Reports: None, Hx Orthopedic Surgery - finger - Immunizations Immunizations up to date: No Hx Diphtheria, Pertussis, Tetanus Vaccination: No Review of Systems - Review of Systems -: Yes ROS unobtainable due to patient's medical condition Constitutional: No symptoms reported EENT: No symptoms reported Cardiovascular: No symptoms reported Respiratory: No symptoms reported Gastrointestinal: No symptoms reported Genitourinary: No symptoms reported Male Genitourinary: No symptoms reported Musculoskeletal: No symptoms reported Skin: No symptoms reported Hematologic/Lymphatic: No symptoms reported Neurological/Psychological: Hallucinations. denies: Confusion, Homicidal ideation, Suicidal ideation -: Yes All other systems reviewed and negative Physical Exam - Vital signs Vitals: Temp Pulse Resp BP Pulse Ox 98.0 F 96 16 148/100 H 94 06/01/18 18:41 06/01/18 18:41 06/01/18 18:41 06/01/18 18:41 06/01/18 18:41 Interpretation: Normal - General General appearance: Alert, Other - Appears with flat affect and no response to internal stimuli In distress: None - HEENT Head: Normocephalic, Atraumatic Eyes: Normal Pupils: PERRL - Respiratory Respiratory status: No respiratory distress Chest status: Nontender Breath sounds: Normal Chest palpation: Normal - Cardiovascular Rhythm: Regular Heart sounds: Normal auscultation Murmur: No - Abdominal Inspection: Normal Distension: No distension Bowel sounds: Normal Tenderness: Nontender Organomegaly: No organomegaly - Rectal Tenderness: No - Deferred - Genitourinary Notes: Deferred - Back Back: Normal, Nontender - Extremities General upper extremity: Normal inspection, Nontender, Normal color, Normal ROM , Normal temperature General lower extremity: Normal inspection, Nontender, Normal color, Normal ROM , Normal temperature, Normal weight bearing. No: Kimo's sign - Neurological Neuro grossly intact: Yes Cognition: Normal Orientation: AAOx4 [place] Coma Scale Eye Opening: Spontaneous [place] Coma Scale Verbal: Oriented [place] Coma Scale Motor: Obeys Commands [place] Coma Scale Total: 15 Speech: Normal Motor strength normal: LUE, RUE, LLE, RLE Sensory: Normal - Psychological Associated symptoms: Normal mood, Flat affect, Psychomotor depression. No: Aggressive, Confused - Skin Skin Temperature: Warm Skin Moisture: Dry Skin Color: Normal Course - Re-evaluation Re-evalutation: 06/01/18 20:44 Will medically clear and involuntary commit for inpatient treatment. 06/02/18 01:14 Patient is medically cleared. - Vital Signs Vital signs: Temp Pulse Resp BP Pulse Ox 98.0 F 96 16 148/100 H 94 06/01/18 18:41 06/01/18 18:41 06/01/18 18:41 06/01/18 18:41 06/01/18 18:41 - Laboratory Result Diagrams: 06/01/18 20:00 06/01/18 20:00 Laboratory results interpreted by me: 06/01/18 06/01/18 20:00 20:00 Eosinophils % 15.8 H Absolute Eosinophils 1.0 H ALT 19 L Salicylates < 1.0 L Acetaminophen < 10 L - Diagnostic Test Radiology reviewed: Reports reviewed Discharge - Discharge Clinical Impression: Acute psychosis Schizophrenia Qualifiers: Schizophrenia type: undifferentiated schizophrenia Qualified Code(s): F20.3 - Undifferentiated schizophrenia Condition: Good Disposition: PSYCH HOSP/UNIT
[2018-06-01 20:42] LABS: ABSOLUTE LYMPHOCYTES (AUTO) 1.8 10^3/uL (0.5-4.7); ABSOLUTE MONOCYTES (AUTO) 0.4 10^3/uL (0.1-1.4); ABSOLUTE NEUT (AUTO) 3.1 10^3/uL (1.7-8.2); BASOPHILS % (AUTO) 0.7 % (0-2); EOSINOPHILS % (AUTO) 15.8 % (0-6); HEMATOCRIT 46.7 % (37.9-51.0); HEMOGLOBIN 16.2 g/dL (13.5-17.0); LYMPHOCYTES % (AUTO) 28.5 % (13-45); MEAN CORPUSCULAR HGB CONC 34.6 g/dL (32.0-36.0); MEAN CORPUSCULAR VOLUME 90 fl (80-97); MONOCYTES % (AUTO) 6.5 % (3-13); PLATELET COUNT 212 10^3/uL (150-450); RED BLOOD COUNT 5.21 10^6/uL (4.35-5.55); RED CELL DISTRIBUTION WIDTH 13.3 % (11.5-14.0); SEGMENTED NEUTROPHILS % (AUTO) 48.5 % (42-78); TOTAL CELLS COUNTED % (AUTO) 100 %; WHITE BLOOD COUNT 6.4 10^3/uL (4.0-10.5)
[2018-06-01] MEDS ORDERED: LORAZEPAM 1 MG TABLET PO PRN (20:45)
[2018-06-01] MEDS ORDERED: DIPHENHYDRAMINE HCL 50 MG CAPSULE PO PRN (20:45)
[2018-06-01] MEDS ORDERED: HALOPERIDOL 5 MG TABLET PO PRN (20:45)
[2018-06-01 21:05] LABS: ACETAMINOPHEN < 10 ug/mL (10-30); ALANINE AMINOTRANSFERASE 19 U/L (21-72); ALBUMIN 4.7 g/dL (3.5-5.0); ALCOHOL < 10 mg/dL (NONE DETECTED); ALKALINE PHOSPHATASE 87 U/L (38-126); ANION GAP 15 (5-19); ASPARTATE AMINO TRANSFERASE 21 U/L (17-59); BILIRUBIN,DIRECT 0.2 mg/dL (0.0-0.4); BILIRUBIN,TOTAL 0.3 mg/dL (0.2-1.3); BLOOD UREA NITROGEN 16 mg/dL (7-20); CALCIUM 9.6 mg/dL (8.4-10.2); CARBON DIOXIDE 25 mmol/L (22-30); CHLORIDE 102 mmol/L (98-107); GLUCOSE 98 mg/dL (75-110); POTASSIUM 4.4 mmol/L (3.6-5.0); SALICYLATE < 1.0 mg/dL (2.0-20.0); SODIUM 141.7 mmol/L (137-145)
[2018-06-02 05:02] LABS: APPEARANCE,URINE CLEAR; BILIRUBIN,URINE NEGATIVE (NEGATIVE); COLOR,URINE YELLOW; GLUCOSE, URINE NEGATIVE (NEGATIVE); KETONES,URINE TRACE mg/dL (NEGATIVE); LEUKOCYTE ESTERASE,URINE NEGATIVE (NEGATIVE); NITRITE,URINE NEGATIVE (NEGATIVE); PROTEIN,URINE NEGATIVE (NEGATIVE); URINE SPECIFIC GRAVITY 1.027
[2018-06-02 05:20] LABS: URINE AMPHETAMINES SCREEN NEGATIVE; URINE BARBITURATES SCREEN NEGATIVE; URINE BENZODIAZEPINES SCREEN NEGATIVE; URINE COCAINE SCREEN NEGATIVE; URINE MARIJUANA (THC) SCREEN UNCONFIRMED POSITIVE; URINE METHADONE SCREEN NEGATIVE; URINE PHENCYCLIDINE SCREEN NEGATIVE
[2018-06-02] MEDS ORDERED: LISINOPRIL 10 MG TABLET PO SCH (10:00)
--- NOTE | 2018-06-02 13:12 | EKG REPORT ---
SEVERITY:- NORMAL ECG - SINUS RHYTHM : Confirmed by: Danuta Zaldivar MD 02-Jun-2018 13:12:01
[2018-06-02] MEDS ORDERED: BENZTROPINE MESYLATE 1 MG TABLET PO ONE (13:20)
[2018-06-02] MEDS ORDERED: HALOPERIDOL DECANOATE INJ 100 MG/1 ML VIAL IM ONE (13:21)
--- NOTE | 2018-06-02 15:15 | ER Document Report ---
Doctor's Note Notes: 06/02/18 15:13 The patient is doing better today. The psych staff did contact his mother and learned that she did fill all of his prescriptions that were recently given to him and has the medications at home for him to take. That is really the problem with this patient and that he stopped taking his medication and become psychotic. He was given 200 mg of Haldol decoanate IM along with an oral dose of Cogentin. He does have Cogentin with his regular medications that he can start when he gets home.
[2018-06-02 16:15] VITALS: BP 140/85
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
== END 2018-06-02 17:52 | disposition home or self-care (01) ==
LOC: ER 18:37
DX: F20.3 Undifferentiated schizophrenia (principal); Z91.14 Patient's other noncompliance with medication regimen; I10 Essential (primary) hypertension
CPT/HCPCS: 93005; 99285; 96372; 36415; 80307 ×4; 85025; 80053; 81001; 93010; A9270 ×3; J1631

== ENCOUNTER 2018-06-02 19:49 | Emergency (ER) | payer MEDICARE, MEDICAID ==
--- NOTE | 2018-06-02 21:05 | ER Document Report ---
ED Psych Disorder / Suicide - General Chief Complaint: Psych Problem Stated Complaint: PSYCH Time Seen by Provider: 06/02/18 21:04 Notes: 28-year-old male. History of significant mental health disorders. Just discharged from the ER after spending one day here for medication adjustments. Reportedly the patient's mother took him directly to the maintenance scheduler to have him placed on IVC papers. Mother then left and had police bring him in on papers. Patient was still in his blue scrubs that were provided from his ER visit. Patient is watching TV. Denies any complaints. He is smiling which is good for this patient as I have seen him multiple times. Patient extended his hand outward in a gesture of friendliness and I did shake his hand which is a very good sign for this patient as well. Patient would like something to eat is his only request. TRAVEL OUTSIDE OF THE [place] IN LAST 30 DAYS: No - HPI Patient complains to provider of: No: Aggression, Agitated, Bizarre behavior, Hallucinating, Homicidal ideation, Homicidal plan, Homicidal attempt, Overdose, Suicidal ideation, Suicidal plan, Suicidal attempt, Self injury, Other - Related Data Allergies/Adverse Reactions: No Known Allergies Allergy (Verified 04/12/18 13:46) Past Medical History - General Information source: [facility] Records - Social History Smoking Status: Current Every Day Smoker Chew tobacco use (# tins/day): No Frequency of alcohol use: None Drug Abuse: None Lives with: Parents Family History: Reviewed & Not Pertinent Patient has suicidal ideation: Yes Patient has homicidal ideation: Yes - Past Medical History Cardiac Medical History: Reports: Hx Hypertension Denies: Hx Coronary Artery Disease Endocrine Medical History: Denies: Hx Diabetes Mellitus Type 1, Hx Diabetes Mellitus Type 2 Renal/ Medical History: Denies: Hx Peritoneal Dialysis Musculoskeletal Medical History: Reports Hx Musculoskeletal Trauma Psychiatric Medical History: Reports: Hx Anxiety, Hx Bipolar Disorder, Hx Depression, Hx Schizophrenia Traumatic Medical History: Reports: Hx Fractures Past Surgical History: Reports: Hx Orthopedic Surgery - finger - Immunizations Immunizations up to date: No Hx Diphtheria, Pertussis, Tetanus Vaccination: No Review of Systems - Review of Systems Constitutional: denies: Chills, Fever, Weakness EENT: denies: Blurred vision, Difficulty swallowing, Mouth pain Cardiovascular: denies: Chest pain, Dizziness, Lightheaded Respiratory: denies: Cough, Hurts to breathe, Short of breath Gastrointestinal: denies: Abdominal pain, Diarrhea, Nausea, Vomiting Genitourinary: denies: Burning, Discharge, Flank pain Musculoskeletal: denies: Back pain, Muscle pain, Deformity Skin: denies: Dryness, Lesions, Lumps Hematologic/Lymphatic: denies: Anemia, Blood clots, Easy bleeding, Easy bruising Neurological/Psychological: denies: Confusion, Weakness, Numbness Physical Exam - Vital signs Vitals: Temp Pulse Resp BP Pulse Ox 97.8 F 64 16 133/79 H 99 06/02/18 21:05 06/02/18 21:05 06/02/18 21:05 06/02/18 21:05 06/02/18 21:05 Interpretation: Normal - General General appearance: Appears well, Alert - HEENT Head: Normocephalic, Atraumatic Eyes: Normal Pupils: PERRL - Respiratory Respiratory status: No respiratory distress Chest status: Nontender Breath sounds: Normal Chest palpation: Normal - Cardiovascular Rhythm: Regular Heart sounds: Normal auscultation Murmur: No - Abdominal Inspection: Normal Distension: No distension Bowel sounds: Normal Tenderness: Nontender Organomegaly: No organomegaly - Back Back: Normal, Nontender - Extremities General upper extremity: Normal inspection, Nontender, Normal color, Normal ROM , Normal temperature General lower extremity: Normal inspection, Nontender, Normal color, Normal ROM , Normal temperature, Normal weight bearing. No: Kimo's sign - Neurological Neuro grossly intact: Yes Cognition: Normal [place] Coma Scale Eye Opening: Spontaneous [place] Coma Scale Verbal: Oriented [place] Coma Scale Motor: Obeys Commands [place] Coma Scale Total: 15 Speech: Normal Motor strength normal: LUE, RUE, LLE, RLE Sensory: Normal - Psychological Associated symptoms: Normal affect, Normal mood - Skin Skin Temperature: Warm Skin Moisture: Dry Skin Color: Normal Course - Re-evaluation Re-evalutation: 06/02/18 22:31 Uncertain why patient is here at this time. We will have mental health evaluated in the morning. 06/02/18 22:43 Patient still resting comfortably. I did read the papers from the maintenance scheduler. Not really sure what else we can do for him at this time. If this patient is truly this unstable then this begs a question, in my opinion, if he would be better served as a [facility]? - Vital Signs Vital signs: Temp Pulse Resp BP Pulse Ox 97.8 F 64 16 133/79 H 99 06/02/18 21:05 06/02/18 21:05 06/02/18 21:05 06/02/18 21:05 06/02/18 21:05
[2018-06-03 07:52] VITALS: BP 101/65
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
[2018-06-03] MEDS ORDERED: HALOPERIDOL 5 MG TABLET PO ONE (15:30)
[2018-06-03] MEDS ORDERED: BENZTROPINE MESYLATE 1 MG TABLET PO ONE (15:31)
--- NOTE | 2018-06-03 19:30 | ER Document Report ---
Doctor's Note Notes: 06/03/18 19:28 Rounds: Entry from when I saw the patient earlier today. Patient has been seen here numerous times in the past for schizophrenia. At times, he can be quite hostile and belligerent, but is quite calm and pleasant today. Vital signs are all essentially normal. Labs are normal except for being positive for marijuana on his drug screen. Was seen here yesterday and discharged and mother had papers taken out on him almost immediately. Patient appears to be medically stable for transfer or discharge.
== END 2018-06-03 15:44 | disposition home or self-care (01) ==
LOC: ER 19:49
DX: F20.9 Schizophrenia, unspecified (principal); F17.200 Nicotine dependence, unspecified, uncomplicated; F12.90 Cannabis use, unspecified, uncomplicated; F43.21 Adjustment disorder with depressed mood; Z63.4 Disappearance and death of family member; Z62.820 Parent-biological child conflict; I10 Essential (primary) hypertension
CPT/HCPCS: 99283; A9270 ×2

== ENCOUNTER 2018-08-23 09:31 | Emergency (ER) | payer MEDICARE, MEDICAID ==
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
[2018-08-23] MEDS ORDERED: ZIPRASIDONE HCL 20 MG CAPSULE PO ONE ×2 (09:50→09:54)
[2018-08-23 10:33] LABS: APPEARANCE,URINE CLEAR; BILIRUBIN,URINE NEGATIVE (NEGATIVE); COLOR,URINE YELLOW; GLUCOSE, URINE NEGATIVE (NEGATIVE); KETONES,URINE NEGATIVE (NEGATIVE); LEUKOCYTE ESTERASE,URINE NEGATIVE (NEGATIVE); NITRITE,URINE NEGATIVE (NEGATIVE); PROTEIN,URINE NEGATIVE (NEGATIVE); URINE SPECIFIC GRAVITY 1.026
[2018-08-23 10:38] LABS: ABSOLUTE EOSINOPHILS # (AUTO) 0.2 10^3/uL (0.0-0.6); ABSOLUTE LYMPHOCYTES (AUTO) 1.5 10^3/uL (0.5-4.7); ABSOLUTE MONOCYTES (AUTO) 0.4 10^3/uL (0.1-1.4); ABSOLUTE NEUT (AUTO) 2.8 10^3/uL (1.7-8.2); BASOPHILS % (AUTO) 0.3 % (0-2); EOSINOPHILS % (AUTO) 3.7 % (0-6); HEMATOCRIT 46.9 % (37.9-51.0); HEMOGLOBIN 16.4 g/dL (13.5-17.0); MEAN CORPUSCULAR HEMOGLOBIN 31.2 pg (27.0-33.4); MEAN CORPUSCULAR HGB CONC 34.9 g/dL (32.0-36.0); MEAN CORPUSCULAR VOLUME 89 fl (80-97); MONOCYTES % (AUTO) 8.3 % (3-13); PLATELET COUNT 162 10^3/uL (150-450); RED BLOOD COUNT 5.26 10^6/uL (4.35-5.55); SEGMENTED NEUTROPHILS % (AUTO) 56.7 % (42-78); TOTAL CELLS COUNTED % (AUTO) 100 %; WHITE BLOOD COUNT 4.9 10^3/uL (4.0-10.5)
[2018-08-23 10:50] LABS: URINE AMPHETAMINES SCREEN NEGATIVE; URINE BARBITURATES SCREEN NEGATIVE; URINE BENZODIAZEPINES SCREEN NEGATIVE; URINE COCAINE SCREEN NEGATIVE; URINE MARIJUANA (THC) SCREEN UNCONFIRMED POSITIVE; URINE METHADONE SCREEN NEGATIVE; URINE PHENCYCLIDINE SCREEN NEGATIVE
[2018-08-23 10:54] LABS: ALANINE AMINOTRANSFERASE 25 U/L (21-72); ALBUMIN 4.5 g/dL (3.5-5.0); ALCOHOL < 10 mg/dL (NONE DETECTED); ALKALINE PHOSPHATASE 102 U/L (38-126); ANION GAP 8 (5-19); ASPARTATE AMINO TRANSFERASE 18 U/L (17-59); BILIRUBIN,DIRECT 0.1 mg/dL (0.0-0.4); BILIRUBIN,TOTAL 0.3 mg/dL (0.2-1.3); BLOOD UREA NITROGEN 13 mg/dL (7-20); CALCIUM 9.4 mg/dL (8.4-10.2); CARBON DIOXIDE 28 mmol/L (22-30); CHLORIDE 106 mmol/L (98-107); GLUCOSE 110 mg/dL (75-110); POTASSIUM 4.4 mmol/L (3.6-5.0); SODIUM 141.7 mmol/L (137-145); TOTAL PROTEIN 7.5 g/dL (6.3-8.2)
[2018-08-23] MEDS ORDERED: ZIPRASIDONE HCL 40 MG CAPSULE PO ONE (14:31)
[2018-08-23] MEDS ORDERED: NICOTINE 21 MG/24 HR PATCH.TD24 TD ONE (14:47)
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
[2018-08-23] MEDS: HALOPERIDOL 5 MG TABLET PO SCH (18:17)
[2018-08-23] MEDS: OXCARBAZEPINE 150 MG TABLET PO SCH (18:17)
[2018-08-23] MEDS: CLONAZEPAM 1 MG TABLET PO SCH (18:18)
[2018-08-23] MEDS: BENZTROPINE MESYLATE 1 MG TABLET PO SCH (18:18)
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
[2018-08-23] MEDS ORDERED: TRAZODONE HCL 50 MG TABLET PO SCH (22:00)
--- NOTE | 2018-08-24 09:39 | PSYCHOLOGICAL NOTE ---
Psych Note - Psych Note Date seen by psych provider: 08/24/18 Time seen by psych provider: 07:35 - Chart review at 0735. Re evaluation from [id number]. Psych Note: Reason for Consult: 1st re evaluation, 24 Hour IVC Petition, Delusions, Aggression towards mother, HX Schizophrenia Contact Permissions: Mother/EC Lynette Anders Patient is a 28 year old male who is in the ED today on a 24 Hour IVC Petition for delusions and aggression towards mother. He was just discharged from [facility] Friday (08/21/18)and per mother he did not take his medications for 2 days but per patient his mother didn't go get the prescriptions filled. The [facility] discharge medications (Cogentin, Haldol, Trilpetal, Trazodone, Klonopin) were restarted last evening. Overnight documentation indicated patient has no issues, He has remained calm, cooperative and easily redirected while in the EDToday he was observed laying in bed, awake, keeping to himself. He said he was in a good mood and denied SI/HI. He commented "I got to eat, I just don't mean via my mouth and filling stomach up but money nguyen as well." He acknowledged he and his mother argue because "they are different and do things differently." He stated "we need space from each other." He was made aware coordination took place with the ACTT team and they are trying to get him independent living. Patient was alert and oriented to self, person, place, time and situation. Mood was euthymic with congruent affect. He denied SI/HI. He did not appear to be responding to stimuli that interfered with his ability to express self, as well as needs/wants. Thought processes were linear. Conversational speech was within normal limits for rate, tone and prosody. Intellectual abilities are estimated to be average yet impaired due to SPMI. Insight, judgment and impulse control were fair as evidenced by appearing to be at baseline. Care coordination took place with [facility] who identified they are seeking independent living for patient and mother was willing to pick patient up this evening and go back to her home until these other living arrangements can take place. Mother works until 1700 and will come to the ED right after. Both mother and [facility] were made aware patient was administered a Deconoate shot today. Diagnosis: 295.90 (F20.9) Schizophrenia by History 304.30 (F12.20) Cannabis Use Disorder, Severe Medication recommendation made by the psychiatric medication provider, Dr. Jorge MD., includes: Add Haldol Deconoate 200MG IM Once Now every 30 days for psychosis/agitation Impression/Plan: Patient is cleared from acute psychiatric services. Recommendation to rescind 24 Hour IVC Petition. He denied SI/HI and no observed psychosis that isn't felt to be baseline. He has been calm, cooperative and easily redirected while in the ED. [facility] discharge medications were continued. Provided Deconoate shot given patient has had it from this ED previously (multiple times) and his history of noncompliance. Coordinated care with mother and [facility] ACTT team. Consulted with Dr. Breaux regarding the management and care of patient. ED Physician in agreement with recommendations.
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
[2018-08-24] MEDS ORDERED: HALOPERIDOL DECANOATE INJ 100 MG/1 ML VIAL IM ONE (09:58)
[2018-08-24] MEDS: OXCARBAZEPINE 150 MG TABLET PO SCH (10:19)
[2018-08-24] MEDS: CLONAZEPAM 1 MG TABLET PO SCH (10:20)
[2018-08-24] MEDS: HALOPERIDOL 5 MG TABLET PO SCH (10:20)
[2018-08-24] MEDS: BENZTROPINE MESYLATE 1 MG TABLET PO SCH (10:20)
--- NOTE | 2018-08-24 13:02 | EKG REPORT ---
SEVERITY:- NORMAL ECG - SINUS RHYTHM : Confirmed by: Danuta Zaldivar MD 24-Aug-2018 13:01:54
[2018-08-24 17:36] VITALS: BP 112/75
== END 2018-08-24 17:39 | disposition home or self-care (01) ==
LOC: ER 09:31
DX: F23 Brief psychotic disorder (principal); Y09 Assault by unspecified means; F17.200 Nicotine dependence, unspecified, uncomplicated; I10 Essential (primary) hypertension
CPT/HCPCS: 93005; 99285; 96372; 36415; 80307 ×2; 84443; 85025; 80053; 81001; 93010; A9270 ×11; J1631

== ENCOUNTER 2018-08-30 21:43 | Emergency (ER) | payer MEDICARE, MEDICAID ==
[2018-08-30 22:43] VITALS: BP 144/89
== END 2018-08-30 23:06 | disposition left against medical advice (07) ==
LOC: ER 21:43
DX: Z53.21 Procedure and treatment not carried out due to patient leaving prior to being seen by health care provider (principal)

== ENCOUNTER 2018-10-13 17:49 | Emergency (ER) | payer MEDICARE, MEDICAID ==
[2018-10-13 18:19] VITALS: BP 118/74
--- NOTE | 2018-10-13 18:53 | ER Document Report ---
ED Medical Screen (RME) - General Chief Complaint: Psych Problem Stated Complaint: PSYCH EVAL/AGRESSIVE BEHAVIOR Time Seen by Provider: 10/13/18 18:48 Notes: 28-year-old -Stateless male with history of schizophrenia brought in by his mother so that he could talk to somebody. Apparently he has been having some increased anger at some family members in recent days. He has had some verbal altercations but is not physically hurt anybody. He does not have any suicidal or homicidal lesions. I have treated and performed a rapid initial assessment of this patient. A comprehensive ED assessment and evaluation of the patient, analysis of test results and completion of medical decision making process will be conducted by additional ED providers. PHYSICAL EXAMINATION: GENERAL: Well-appearing, well-nourished and in no acute distress. A&Ox4. Answers questions appropriately. LUNGS: Breath sounds clear to auscultation bilaterally and equal. No wheezes rales or rhonchi. HEART: Regular rate and rhythm without murmurs, rubs, gallops. Extremities: No cyanosis, clubbing, or edema b/l. NEUROLOGICAL: Normal speech, normal gait. PSYCH: Normal mood, normal affect. TRAVEL OUTSIDE OF THE [place] IN LAST 30 DAYS: No - Related Data Allergies/Adverse Reactions: No Known Allergies Allergy (Verified 04/12/18 13:46) Past Medical History - Past Medical History Cardiac Medical History: Reports: Hx Hypertension Denies: Hx Coronary Artery Disease Endocrine Medical History: Denies: Hx Diabetes Mellitus Type 1, Hx Diabetes Mellitus Type 2 Renal/ Medical History: Denies: Hx Peritoneal Dialysis Musculoskeltal Medical History: Reports Hx Musculoskeletal Trauma Psychiatric Medical History: Reports: Hx Anxiety, Hx Bipolar Disorder, Hx Depression, Hx Schizophrenia Traumatic Medical History: Reports: Hx Fractures Past Surgical History: Reports: Hx Orthopedic Surgery - finger - Immunizations Immunizations up to date: No Hx Diphtheria, Pertussis, Tetanus Vaccination: No Physical Exam - Vital signs Vitals: Temp Pulse Resp BP Pulse Ox 97.7 F 99 18 118/74 97 10/13/18 18:16 10/13/18 18:16 10/13/18 18:16 10/13/18 18:16 10/13/18 18:16 Course - Vital Signs Vital signs: Temp Pulse Resp BP Pulse Ox 97.7 F 99 18 118/74 97 10/13/18 18:16 10/13/18 18:16 10/13/18 18:16 10/13/18 18:16 10/13/18 18:16
[2018-10-13 19:31] LABS: ABSOLUTE EOSINOPHILS # (AUTO) 0.2 10^3/uL (0.0-0.6); ABSOLUTE LYMPHOCYTES (AUTO) 1.8 10^3/uL (0.5-4.7); ABSOLUTE MONOCYTES (AUTO) 0.4 10^3/uL (0.1-1.4); ABSOLUTE NEUT (AUTO) 2.8 10^3/uL (1.7-8.2); BASOPHILS % (AUTO) 0.7 % (0-2); EOSINOPHILS % (AUTO) 4.6 % (0-6); HEMATOCRIT 48.3 % (37.9-51.0); HEMOGLOBIN 16.6 g/dL (13.5-17.0); LYMPHOCYTES % (AUTO) 34.2 % (13-45); MEAN CORPUSCULAR HEMOGLOBIN 30.6 pg (27.0-33.4); MEAN CORPUSCULAR HGB CONC 34.5 g/dL (32.0-36.0); MEAN CORPUSCULAR VOLUME 89 fl (80-97); MONOCYTES % (AUTO) 7.2 % (3-13); PLATELET COUNT 176 10^3/uL (150-450); RED BLOOD COUNT 5.43 10^6/uL (4.35-5.55); RED CELL DISTRIBUTION WIDTH 13.2 % (11.5-14.0); SEGMENTED NEUTROPHILS % (AUTO) 53.3 % (42-78); TOTAL CELLS COUNTED % (AUTO) 100 %; WHITE BLOOD COUNT 5.3 10^3/uL (4.0-10.5)
[2018-10-13 19:35] LABS: APPEARANCE,URINE CLEAR; BILIRUBIN,URINE NEGATIVE (NEGATIVE); COLOR,URINE YELLOW; GLUCOSE, URINE NEGATIVE (NEGATIVE); KETONES,URINE NEGATIVE (NEGATIVE); LEUKOCYTE ESTERASE,URINE TRACE (NEGATIVE); NITRITE,URINE NEGATIVE (NEGATIVE); PROTEIN,URINE 30 mg/dL (NEGATIVE); URINE SPECIFIC GRAVITY 1.026
[2018-10-13 19:49] LABS: ALANINE AMINOTRANSFERASE 20 U/L (21-72); ALBUMIN 4.7 g/dL (3.5-5.0); ALKALINE PHOSPHATASE 85 U/L (38-126); ANION GAP 8 (5-19); ASPARTATE AMINO TRANSFERASE 21 U/L (17-59); BILIRUBIN,DIRECT 0.3 mg/dL (0.0-0.4); BILIRUBIN,TOTAL 0.4 mg/dL (0.2-1.3); BLOOD UREA NITROGEN 16 mg/dL (7-20); CALCIUM 9.8 mg/dL (8.4-10.2); CARBON DIOXIDE 27 mmol/L (22-30); CHLORIDE 105 mmol/L (98-107); GLUCOSE 95 mg/dL (75-110); POTASSIUM 4.4 mmol/L (3.6-5.0); SODIUM 139.6 mmol/L (137-145); TOTAL PROTEIN 8.3 g/dL (6.3-8.2)
[2018-10-13 19:52] LABS: ACETAMINOPHEN < 10 ug/mL (10-30); ALCOHOL < 10 mg/dL (NONE DETECTED); SALICYLATE < 1.0 mg/dL (2.0-20.0)
[2018-10-13 20:10] LABS: URINE AMPHETAMINES SCREEN NEGATIVE; URINE BARBITURATES SCREEN NEGATIVE; URINE BENZODIAZEPINES SCREEN NEGATIVE; URINE COCAINE SCREEN NEGATIVE; URINE MARIJUANA (THC) SCREEN UNCONFIRMED POSITIVE; URINE METHADONE SCREEN NEGATIVE; URINE PHENCYCLIDINE SCREEN NEGATIVE
--- NOTE | 2018-10-13 21:05 | ER Document Report ---
ED General - General Chief Complaint: Psych Problem Stated Complaint: PSYCH EVAL/AGRESSIVE BEHAVIOR Time Seen by Provider: 10/13/18 18:48 Notes: Patient is a 28-year-old male with a past medical history of schizophrenia, frequent visits to the emergency department who presents due to concerns of acting aggressively at home. The patient did originally present with his mother who is no longer at the bedside. The patient states that he was arguing with himself earlier, felt very aggressive and angry but "I am all better now". He states that he feels very calm, denies any time he had suicidal or homicidal ideation. Continues to deny suicidal or homicidal ideation. States that his been taking all medications as prescribed but that sometimes this still does not control of his symptoms. No obvious worsening or triggering factor for t onight's episode. Denies any acute physical complaints. Denies drug or alcohol consumption this evening. Denies any medical concerns of any type at the time of my evaluation. TRAVEL OUTSIDE OF THE [place] IN LAST 30 DAYS: No - Related Data Allergies/Adverse Reactions: No Known Allergies Allergy (Verified 04/12/18 13:46) Past Medical History - General Information source: Patient - Social History Smoking Status: Current Every Day Smoker Frequency of alcohol use: None Drug Abuse: Marijuana Lives with: Family Family History: Reviewed & Not Pertinent Patient has suicidal ideation: No Patient has homicidal ideation: No - Past Medical History Cardiac Medical History: Reports: Hx Hypertension Denies: Hx Coronary Artery Disease Endocrine Medical History: Denies: Hx Diabetes Mellitus Type 1, Hx Diabetes Charity litus Type 2 Renal/ Medical History: Denies: Hx Peritoneal Dialysis Musculoskeletal Medical History: Reports Hx Musculoskeletal Trauma Psychiatric Medical History: Reports: Hx Anxiety, Hx Bipolar Disorder, Hx Depression, Hx Schizophrenia Traumatic Medical History: Reports: Hx Fractures Past Surgical History: Reports: Hx Orthopedic Surgery - finger - Immunizations Immunizations up to date: No Hx Diphtheria, Pertussis, Tetanus Vaccination: No Review of Systems - Review of Systems Notes: Constitutional: Negative for fever. HENT: Negative for sore throat. Eyes: Negative for visual changes. Cardiovascular: Negative for chest pain. Respiratory: Negative for shortness of breath. Gastrointestinal: Negative for abdominal pain, vomiting or diarrhea. Genitourinary: Negative for dysuria. Musculoskeletal: Negative for back pain. Skin: Negative for rash. Neurological: Negative for headaches, weakness or numbness. 10 point ROS negative except as marked above and in HPI. Physical Exam - Vital signs Vitals: Temp Pulse Resp BP Pulse Ox 97.7 F 99 18 118/74 97 10/13/18 18:16 10/13/18 18:16 10/13/18 18:16 10/13/18 18:16 10/13/18 18:16 Interpretation: Normal Notes: PHYSICAL EXAMINATION: GENERAL: Well-appearing, well-nourished and in no acute distress. HEAD: Atraumatic, normocephalic. EYES: Pupils equal round and reactive to light, extraocular movements intact, sclera anicteric, conjunctiva are normal. ENT: nares patent, oropharynx clear without exudates. Moist mucous membranes. NECK: Normal range of motion, supple without lymphadenopathy LUNGS: Breath sounds clear to auscultation bilaterally and equal. No wheezes rales or rhonchi. HEART: Regular rate and rhythm without murmurs ABDOMEN: Soft, nontender, normoactive bowel sounds. No guarding, no rebound. No masses appreciated. EXTREMITIES: Normal range of motion, no pitting or edema. No cyanosis. NEUROLOGICAL: No focal neurological deficits. Moves all extremities spontaneously and on command. PSYCH: Somewhat unusual affect although baseline from previous assessments, calm, cooperative, denying SI or HI SKIN: Warm, Dry, normal turgor, no rashes or lesions noted. Course - Re-evaluation Re-evalutation: 10/13/18 21:02 Presentation of a patient well-known to me who presents with concerns of aggressive behavior at home after having "an argument with myself. I see the patient states "I am all better now, I am done arguing with myself and am ready to go home". He denies any suicidal or homicidal ideation. States that at no point did he have either of these symptoms and denied these in triage as well. He is calm, cooperative, appropriate and interactive. He states that he is taking all medications. He does not meet involuntary commitment criteria, does wish to leave and I have no grounds but wished to hold him against his will. Medical screening exam and labs otherwise unremarkable. At this time will discharge with return precautions and follow-up recommendations. Verbal discharge instructions given a the bedside and opportunity for questions given. Patient is in agreement with this plan and has verbalized understanding of ret urn precautions and the need for psychiatric follow-up in the next 24-72 hours. - Vital Signs Vital signs: Temp Pulse Resp BP Pulse Ox 97.7 F 99 18 118/74 97 10/13/18 18:16 10/13/18 18:16 10/13/18 18:16 10/13/18 18:16 10/13/18 18:16 - Laboratory Result Diagrams: 10/13/18 19:16 10/13/18 19:16 Laboratory results interpreted by me: 10/13/18 10/13/18 19:16 19:16 ALT 20 L Total Protein 8.3 H Urine Protein 30 H Urine Urobilinogen 2.0 H Ur Leukocyte Esterase TRACE H Salicylates < 1.0 L Acetaminophen < 10 L - EKG Interpretation by Me Additional EKG results interpreted by me: 10/13/18 21:04 Sinus rhythm, rate 76. No ST elevations or depressions. QTC is 396. Discharge - Discharge Clinical Impression: Aggressive behavior Schizophrenia Qualifiers: Schizophrenia type: unspecified Qualified Code(s): F20.9 - Schizophrenia, unspecified Condition: Good Disposition: HOME, SELF-CARE Additional Instructions: Please return if you have thoughts of wanting to hurt yourself, hurt others, or have any other symptoms that are concerning to you.
--- NOTE | 2018-10-14 07:56 | EKG REPORT ---
SEVERITY:- NORMAL ECG - SINUS RHYTHM : Confirmed by: Jose Kruse MD 14-Oct-2018 07:55:58
== END 2018-10-13 21:05 | disposition home or self-care (01) ==
LOC: ER 17:49
DX: F20.9 Schizophrenia, unspecified (principal); F91.9 Conduct disorder, unspecified; F17.200 Nicotine dependence, unspecified, uncomplicated; F12.10 Cannabis abuse, uncomplicated; I10 Essential (primary) hypertension
CPT/HCPCS: 36415; 80053; 80307; 81001; 85025; 93005; 93010; 99285